=== PATIENT | female | born 1940 | race Caucasian/White ===

== ENCOUNTER 2022-01-24 21:21 | Observation (INO) | payer SELFPAY ==
[~2022-01-24] VITALS: Ht 170.2 cm; Wt 91.0 kg
[2022-01-24] MEDS ORDERED: LORazepam 2 MG/ML VIAL As Ordered ONE (21:37)
[2022-01-24] MEDS ORDERED: NOREPINEPHRINE BITARTRATE 8 MG in D5W 492 ML IV SCH (22:00)
[2022-01-24] MEDS ORDERED: NOREPINEPHRINE 4 MG/4 ML AMP As Ordered ONE (22:01)
[2022-01-24 22:20] LABS: ABG BASE EXCESS -20.3 (-2.0-2.0); ABG HCO3 11.4 MEQ/L (22.0-26.0); ABG O2 SATURATION 84.2 % (95.0-99.0); ABG PARTIAL PRESSURE CO2 50.4 mmHg (35.0-45.0); ABG PARTIAL PRESSURE O2 73.3 mmHg (75.0-100.0); ABG STANDARD HCO3 9.7 MEQ/L (22.0-26.0); ABG TOTAL CO2 12.9 MEQ/L (23.0-31.0); ABG pH (ARTERIAL) 6.971 UNITS (7.350-7.450)
[2022-01-24 22:27] LABS: BASO % 0.4 % (0.0-1.0); EOS % 0.3 % (0.0-3.0); HEMATOCRIT 25.8 % (36.0-47.0); HEMOGLOBIN 7.3 g/dl (12.0-15.5); LYMPH # 0.7 10^3/uL (1.5-5.0); LYMPH % 9.3 % (24.0-44.0); MEAN CORPUSCULAR HEMOGLOBIN 25.9 pg (27.0-33.0); MEAN CORPUSCULAR HGB CONC 28.3 g/dl (32.0-36.5); MEAN CORPUSCULAR VOLUME 91.5 fl (80.0-96.0); MONO # 0.2 10^3/uL (0.0-0.8); MONO % 3.1 % (2.0-8.0); NEUTROPHILS # 6.3 10^3/uL (1.5-8.5); PLATELET COUNT, AUTOMATED 133 10^3/uL (150-450); RED BLOOD COUNT 2.82 10^6/uL (4.00-5.40); WHITE BLOOD COUNT 7.5 10^3/uL (4.0-10.0)
[2022-01-24] MEDS ORDERED: SODIUM BICARBONATE 8.4% INJ 50 ML SYRINGE IV STA (22:30)
[2022-01-24] MEDS ORDERED: IPRATROPIUM 0.5MG/ALBUTEROL 2.5MG INH SOL UD 3ML (DUONEB) NEB ONE (22:35)
[2022-01-24 22:38] LABS: CK-MB VALUE MASS 1.2 NG/ML (<3.6); MB/CK RELATIVE INDEX 2.07 (< OR =4)
[2022-01-24 22:52] LABS: ACETONE/KETONE 3.18 MG/DL (<2.81); BILIRUBIN,TOTAL 2.4 MG/DL (0.2-1.0); CALCIUM LEVEL 8.8 MG/DL (8.8-10.2); CREATININE FOR GFR 2.65 MG/DL (0.55-1.30); GLOMERULAR FILTRATION RATE 18.5 (>39); POTASSIUM SERUM 6.7 MEQ/L (3.5-5.1); TOTAL PROTEIN 5.9 GM/DL (6.4-8.2)
[2022-01-24] MEDS ORDERED: SODIUM BICARBONATE 8.4% INJ 50 ML SYRINGE IV ONE (22:55)
[2022-01-24] MEDS ORDERED: HumuLIN R (REGULAR) INSULIN (NovoLIN R) **100U/ML** PER UNIT IV ONE (22:55)
[2022-01-24] MEDS ORDERED: DEXTROSE 50% 50 ML SYRINGE IV ONE (22:55)
[2022-01-24] MEDS ORDERED: CALCIUM GLUCONATE 1,000 MG in D5W MINI-BAG PLUS 100 ML IV ONE (22:55)
[2022-01-24] MEDS ORDERED: MORPHINE 2 MG/ML 1ML VIAL IV ONE (23:35)
[2022-01-24] MEDS ORDERED: fentaNYL 100 MCG/2 ML INJECTION IV ONE (23:50)
[2022-01-25] MEDS ORDERED: HOME MED LIST COMPLETE! XX SCH (00:55)
[2022-01-25] MEDS ORDERED: ATROPINE SULFATE 1% OP SOLN 2 ML BTL SL PRN (01:20)
[2022-01-25] MEDS ORDERED: HYOSCYAMINE SULFATE 0.125 MG SUBL TABLET PO PRN (01:20)
[2022-01-25] MEDS ORDERED: ONDANSETRON 4MG/2ML VIAL IV PRN (01:20)
[2022-01-25] MEDS ORDERED: SCOPOLAMINE 1MG TRANSDERMAL PATCH TOP PRN (01:20)
[2022-01-25 01:46] VITALS: BP 114/56
[2022-01-25] MEDS: MORPHINE 2 MG/ML 1ML VIAL IV PRN ×3 (03:14→08:32)
[2022-01-25] MEDS: LORazepam 2 MG/ML VIAL IV PRN ×2 (03:15→09:39)
== END 2022-01-25 13:35 | disposition expired ==
LOC: EDBD 21:21 → M ED 21:21 → M ED INP 21:22 → M PCU 01-25 05:20
PROVIDERS: ADMIT Family Medicine; ATTEND Family Medicine
DX: I50.89 Other heart failure (principal); J96.22 Acute and chronic respiratory failure with hypercapnia; J96.21 Acute and chronic respiratory failure with hypoxia; I95.9 Hypotension, unspecified; N17.9 Acute kidney failure, unspecified; E87.5 Hyperkalemia; R68.0 Hypothermia, not associated with low environmental temperature; D64.9 Anemia, unspecified; R00.1 Bradycardia, unspecified; I48.91 Unspecified atrial fibrillation; E16.2 Hypoglycemia, unspecified; J44.9 Chronic obstructive pulmonary disease, unspecified; E87.4 Mixed disorder of acid-base balance; E80.6 Other disorders of bilirubin metabolism; R74.01 Elevation of levels of liver transaminase levels; J45.909 Unspecified asthma, uncomplicated; Z51.5 Encounter for palliative care; R91.8 Other nonspecific abnormal finding of lung field; C34.90 Malignant neoplasm of unspecified part of unspecified bronchus or lung
CPT/HCPCS: 70450; 71045; 80047; 80053; 82010; 82550; 82553; 82803; 83735; 83880; 84484; 85025; 87040; 87486; 87581; 87633; 87798; 93005; 94640; 96365; 96367; 96375; 96376; 99285; J0610; J1815; J2060; J2270; J3010